=== PATIENT | female | born 1950 | race Caucasian/White ===

== ENCOUNTER 2017-08-11 14:46 | Outpatient (CLI) | payer MEDICARE, OTHER | END 2017-08-11 14:47 | disposition home or self-care (01) | LOC: MADEKG 14:46 | PROVIDERS: ATTEND Family Medicine | DX: R07.89 Other chest pain (principal) | CPT/HCPCS: 93005; 93010 ==

== ENCOUNTER 2017-11-04 09:37 | Emergency (ER) | payer MEDICARE, OTHER ==
[2017-11-04] MEDS ORDERED: Ondansetron ODT 4 MG TAB ONE (12:19)
[2017-11-04 12:23] LABS: Bilirubin Negative (Negative); Blood, Urine Large (Negative); Glucose, Urine (Dipstick) Negative (Negative); Leukocyte Moderate (Negative); Nitrite Negative (Negative); Protein, Urine (Dipstick) 100 mg/dL (Neg-Trace); Specific Gravity, Urine 1.015 (1.005-1.030); Urobilinogen 0.2 mg/dL (0.2-1.0)
[2017-11-04 12:24] LABS: Clarity Hazy (Clear)
[2017-11-04 12:26] LABS: RBC/HPF GREATER THAN 50-TNTC HPF (0-3)
[2017-11-04 12:28] LABS: Bacteria/HPF Rare-Few HPF (None Seen); Squamous Epithelial 0-3 HPF (0-3)
[2017-11-04] MEDS ORDERED: Nitrofurantoin Monohyd/M-Cryst 100 MG CAP ONE (13:08)
[2017-11-04] MEDS ORDERED: Phenazopyridine HCl 97.5 MG TABLET ONE (13:08)
== END 2017-11-04 13:13 | disposition home or self-care (01) ==
LOC: MADERS 09:37
DX: N39.0 Urinary tract infection, site not specified (principal); M54.5 Low back pain; M19.90 Unspecified osteoarthritis, unspecified site; G62.9 Polyneuropathy, unspecified; E11.40 Type 2 diabetes mellitus with diabetic neuropathy, unspecified; K21.9 Gastro-esophageal reflux disease without esophagitis; I10 Essential (primary) hypertension
CPT/HCPCS: 81001; 87077; 87086; 87186; 99283; A4353; Q0162

== ENCOUNTER 2017-12-11 15:06 | Emergency (ER) | payer MEDICARE, OTHER ==
[~2017-12-11 15:06] MED LIST: Sodium Chloride 0.9% 1,000 ML BAG ONE; Sodium Chloride 0.9% 500 ML BAG ONE
[2017-12-11 15:44] LABS: #Basophils 0.1 thou/uL (0.0-0.2); #Eosinphils 0.1 thou/uL (0.0-0.7); #Lymphocytes 2.8 thou/uL (1.20-3.40); #Monocytes 0.6 thou/uL (0.11-0.59); #Neutrophils 3.1 thou/uL (1.40-6.50); %Basophils 1.8 % (0.0-1.0); %Eosinophils 1.8 % (0.0-10.0); %Lymphocytes 41.6 % (21.0-51.0); %Monocytes 8.7 % (0.0-10.0); %Neutrophils 46.1 % (42.0-75.0); Hemoglobin 13.4 g/dL (12.0-16.0); Mean Corpuscular HGB CONC 34.5 g/dL (32.0-36.0); Mean Corpuscular Hemoglobin 30.5 pg (27.0-31.0); Mean Corpuscular Volume 88.3 fL (78.0-98.0); Mean Platelet Volume 9.8 fL (7.4-10.4); Platelet Count 224 thou/uL (130-400); RBC Distribution Width 12.3 % (11.5-14.5); Red Blood Cell (RBC) Count 4.38 mill/uL (4.20-5.40); White Blood Cell (WBC) Count 6.7 thou/uL (4.8-10.8)
[2017-12-11 15:46] LABS: PTT 32.8 SEC (22.9-36.1); Prothrombin Time 13.4 SEC (12.0-14.7)
[2017-12-11 15:56] LABS: ALT (SGPT) 78 U/L (8-55); AST (SGOT) 75 U/L (5-34); Albumin 4.5 g/dL (3.4-4.8); Alkaline Phosphatase 86 U/L (40-150); Anion Gap 17 mmol/L (10-20); BUN (Urea Nitrogen) 21 mg/dL (9.8-20.1); Bilirubin, Total 0.5 mg/dL (0.2-1.2); Calc. Creatinine Clearance 0 mL/min (70-130); Calcium 9.6 mg/dL (7.8-10.44); Carbon Dioxide 25 mmol/L (23-31); Chloride 100 mmol/L (98-107); Estimated GFR-MDRD 49; Globulin 3.2 g/dL (2.4-3.5); Glucose 123 mg/dL (80-115); Magnesium 1.9 mg/dL (1.6-2.6); Protein, Total 7.7 g/dL (6.0-8.3); Sodium 138 mmol/L (136-145)
[2017-12-11 15:58] LABS: CKMB 1.7 ng/mL (0-6.6); Troponin I Less than 0.010 ng/mL (< 0.028)
--- NOTE | 2017-12-11 17:15 | RAD ---
PA AND LATERAL CHEST X-RAY: 12/11/2017 HISTORY: Syncope. COMPARISON: None available. FINDINGS: The cardiac silhouette and pulmonary vasculature are within normal limits. The lungs are clear. The osseous structures are intact. IMPRESSION: No acute cardiopulmonary process. POS: [facility]
[2017-12-11 17:46] LABS: Bilirubin Negative (Negative); Blood, Urine Negative (Negative); Glucose, Urine (Dipstick) Negative (Negative); Leukocyte Large (Negative); Nitrite Negative (Negative); Protein, Urine (Dipstick) Negative (Neg-Trace); Specific Gravity, Urine 1.015 (1.005-1.030); Urobilinogen 0.2 mg/dL (0.2-1.0)
[2017-12-11 17:47] LABS: Clarity Hazy (Clear)
[2017-12-11 17:59] LABS: Bacteria/HPF 1+ HPF (None Seen); RBC/HPF 0-3 HPF (0-3)
== END 2017-12-11 19:18 | disposition home or self-care (01) ==
LOC: MADERS 15:06
DX: R42 Dizziness and giddiness (principal); M19.90 Unspecified osteoarthritis, unspecified site; E11.40 Type 2 diabetes mellitus with diabetic neuropathy, unspecified; K21.9 Gastro-esophageal reflux disease without esophagitis; I10 Essential (primary) hypertension
CPT/HCPCS: 71046; 80053; 81003; 81015; 82553; 83735; 84443; 84484; 85025; 85610; 85730; 93005; 96360; 96361; J7050

== ENCOUNTER 2018-12-28 11:50 | Emergency (ER) | payer MEDICARE, OTHER ==
[~2018-12-28 11:50] MED LIST changes: -Sodium Chloride 0.9% 1,000 ML BAG ONE; -Sodium Chloride 0.9% 500 ML BAG ONE; +Sodium Chloride Irrig Solution 250 ML BOT ONE
[2018-12-28] MEDS ORDERED: Lidocaine 1% 20 ML MDV ONE (12:16)
[2018-12-28] MEDS ORDERED: Adacel (T-DAP) 0.5 ML SYRINGE ONE (12:27)
== END 2018-12-28 12:55 | disposition home or self-care (01) ==
LOC: MADERS 11:50
DX: N75.1 Abscess of Bartholin's gland (principal); E11.9 Type 2 diabetes mellitus without complications; K21.9 Gastro-esophageal reflux disease without esophagitis; I10 Essential (primary) hypertension; Z79.899 Other long term (current) drug therapy; Z79.84 Long term (current) use of oral hypoglycemic drugs
CPT/HCPCS: 56420; 87070; 87205; 90471; 90715; J2001

== ENCOUNTER 2018-12-30 13:52 | Emergency (ER) | payer MEDICARE, OTHER | END 2018-12-30 14:20 | disposition home or self-care (01) | LOC: MADERS 13:52 | DX: Z48.817 Encounter for surgical aftercare following surgery on the skin and subcutaneous tissue (principal); E11.9 Type 2 diabetes mellitus without complications; K21.9 Gastro-esophageal reflux disease without esophagitis; I10 Essential (primary) hypertension; Z79.899 Other long term (current) drug therapy | CPT/HCPCS: 99282 ==

== ENCOUNTER 2019-08-18 10:12 | Emergency (ER) | payer MEDICARE, OTHER ==
[2019-08-18 10:48] LABS: Bilirubin Negative (Negative); Blood, Urine Large (Negative); Clarity Cloudy (Clear); Glucose, Urine (Dipstick) Negative (Negative); Leukocyte Large (Negative); Nitrite Positive (Negative); Protein, Urine (Dipstick) 100 mg/dL (Neg-Trace); Urobilinogen 0.2 mg/dL (Less than 2)
[2019-08-18 10:53] LABS: Bacteria/HPF 4+ HPF (None Seen); RBC/HPF Greater than 50 HPF (0-3); Squamous Epithelial None Seen HPF (0-3); WBC/HPF Greater Than 50 HPF (0-3)
== END 2019-08-18 11:03 | disposition home or self-care (01) ==
LOC: MADERS 10:12
DX: N39.0 Urinary tract infection, site not specified (principal); E11.40 Type 2 diabetes mellitus with diabetic neuropathy, unspecified; K21.9 Gastro-esophageal reflux disease without esophagitis; I10 Essential (primary) hypertension; Z79.899 Other long term (current) drug therapy; Z79.84 Long term (current) use of oral hypoglycemic drugs
CPT/HCPCS: 81003; 81015; 99284

== ENCOUNTER 2019-08-24 15:10 | Emergency (ER) | payer MEDICARE, OTHER ==
[2019-08-24 15:33] LABS: Bilirubin Negative (Negative); Blood, Urine Large (Negative); Glucose, Urine (Dipstick) Negative (Negative); Leukocyte Large (Negative); Nitrite Negative (Negative); Protein, Urine (Dipstick) Negative (Neg-Trace); Urobilinogen 0.2 mg/dL (Less than 2)
[2019-08-24 15:34] LABS: Clarity Cloudy (Clear)
[2019-08-24 15:39] LABS: WBC/HPF Greater Than 50 HPF (0-3)
[2019-08-24 15:40] LABS: Bacteria/HPF 2+ HPF (None Seen); Squamous Epithelial 0-3 HPF (0-3)
== END 2019-08-24 16:00 | disposition home or self-care (01) ==
LOC: MADERS 15:10
DX: N39.0 Urinary tract infection, site not specified (principal); E11.9 Type 2 diabetes mellitus without complications; K21.9 Gastro-esophageal reflux disease without esophagitis; I10 Essential (primary) hypertension; Z79.84 Long term (current) use of oral hypoglycemic drugs; Z79.899 Other long term (current) drug therapy
CPT/HCPCS: 81003; 81015; 87077; 87086; 87186; 99283

== ENCOUNTER 2019-09-01 11:43 | Emergency (ER) | payer MEDICARE, OTHER ==
--- NOTE | 2019-09-01 12:36 | RAD ---
Radiograph left shoulder 3 views: DATE: 09/01/2019 HISTORY: 69-year-old female with acute left shoulder pain and limited range of motion FINDINGS: No HADD calcification of rotator cuff identified. No acute fracture or dislocation. No high-grade DJD of glenohumeral joint. Mild DJD of AC joint. No destructive osseous lesion. IMPRESSION: No major pathology identified
[2019-09-01] MEDS ORDERED: Ibuprofen 800 MG TAB ONE (12:40)
[2019-09-01] MEDS ORDERED: Dexamethasone 4 MG TAB ONE (12:40)
[2019-09-01] MEDS ORDERED: Ketorolac Tromethamine 60 MG/2 ML VIAL ONE (12:44)
== END 2019-09-01 13:03 | disposition home or self-care (01) ==
LOC: MADERS 11:43
DX: M77.9 Enthesopathy, unspecified (principal); G89.29 Other chronic pain; E11.40 Type 2 diabetes mellitus with diabetic neuropathy, unspecified; K21.9 Gastro-esophageal reflux disease without esophagitis; I10 Essential (primary) hypertension
CPT/HCPCS: 96372; J1885; J8540

== ENCOUNTER 2019-09-17 11:35 | Outpatient (CLI) | payer MEDICARE, OTHER ==
--- NOTE | 2019-09-17 12:00 | RAD ---
Chest 2 views HISTORY: Preop. COMPARISON: 12/11/2017. FINDINGS: Cardiac silhouette and pulmonary vasculature are unremarkable. Mediastinum is midline. No confluent airspace consolidation, pneumothorax, or pleural fluid. IMPRESSION : No active cardiopulmonary abnormalities are demonstrated.
== END 2019-09-17 11:36 | disposition home or self-care (01) ==
LOC: MADRAD 11:35
PROVIDERS: ATTEND Family Medicine
DX: Z01.818 Encounter for other preprocedural examination (principal)
CPT/HCPCS: 71046; 93005; 93010

== ENCOUNTER 2024-12-18 17:50 | Emergency (ER) | payer MEDICARE, OTHER | END 2024-12-18 19:16 | disposition home or self-care (01) | LOC: MADERS 17:50 | DX: S00.83XA Contusion of other part of head, initial encounter (principal); S60.211A Contusion of right wrist, initial encounter; S80.211A Abrasion, right knee, initial encounter; K21.9 Gastro-esophageal reflux disease without esophagitis; I10 Essential (primary) hypertension; E11.42 Type 2 diabetes mellitus with diabetic polyneuropathy; Z95.0 Presence of cardiac pacemaker; Z79.82 Long term (current) use of aspirin; Z79.899 Other long term (current) drug therapy; Z79.85 Long-term (current) use of injectable non-insulin antidiabetic drugs; W01.0XXA Fall on same level from slipping, tripping and stumbling without subsequent striking against object, initial encounter | CPT/HCPCS: 70450; 70486; 72125 ==